=== PATIENT | male | born 1970 | race Caucasian/White ===

== ENCOUNTER → 2018-02-02 | Outpatient (CLI) | payer BC ==
--- NOTE | 2018-02-02 19:45 | ECHOF ---
Referral Reason:R07.89 other chest pain MEASUREMENTS -------- HEIGHT: 182.9 cm WEIGHT: 122.9 kg BP: 130/57 IVSd: 1.4 cm (0.6 - 1.1) LVIDd: 4.1 cm (3.9 - 5.3) LVPWd: 1.3 cm (0.6 - 1.1) IVSs: 2.1 cm LVIDs: 2.9 cm LVPWs: 1.9 cm LAESV Index (A-L): 28.78 ml/m Ao Diam: 3.7 cm (2.0 - 3.7) AV Cusp: 2.2 cm (1.5 - 2.6) LA Diam: 3.5 cm (2.7 - 3.8) MV EXCURSION: 12.148 mm (> 18.000) MV EF SLOPE: 169 mm/s (70 - 150) EPSS: 0.5 cm MV E Grant: 0.64 m/s MV DecT: 422 ms MV A Grant: 0.51 m/s MV E/A Ratio: 1.25 RAP: 5.00 mmHg RVSP: 15.50 mmHg FINDINGS -------- Sinus rhythm. This was a technically good study. The left ventricular size is normal. There is moderate concentric left ventricular hypertrophy. O verall left ventricular systolic function is normal with, an EF between 55 - 60 %. The right ventricle is normal in size and function. The left atrium is normal in size. The right atrium is normal in size. The aortic valve is trileaflet, and appears structurally normal. No aortic stenosis or regurgitation. There is trace mitral regurgitation. Trace tricuspid regurgitation present. The right ventricular systolic pressure, as measured by Dopp ler, is 15.50mmHg. Pulmonic valve appears structurally normal. The aortic root size is normal. Normal inferior vena cava with normal inspiratory collapse consistent with estimated right atrial pre ssure of 5 mmHg. The pericardium is normal. CONCLUSIONS -------- 1. Sinus rhythm. 2. This was a technically good study. 3. The left ventricular size is normal. 4. There is moderate concentric left ventricular hypertrophy. 5. Overall left ventricular systolic function is normal with, an EF between 55 - 60 %. 6. The right ventricle is normal in size and function. 7. The left atrium is normal in size. 8. The right atrium is normal in size. 9. The aortic valve is trileaflet, and appears structurally normal. No aortic stenosis or regurgitati on. 10. There is trace mitral regurgitation. 11. Trace tricuspid regurgitation present. 12. The right ventricular systolic pressure, as measured by Doppler, is 15.50mmHg. 13. Pulmonic valve appears structurally normal. 14. The aortic root size is normal. 15. Normal inferior vena cava with normal inspiratory collapse consistent with estimated right atrial pressure of 5 mmHg. 16. The pericardium is normal. SHOP TAILOR: Alva Banerjee RDCS
--- NOTE | 2018-02-02 22:55 | EST ---
EXERCISE STRESS AGE: 47 SEX: Male HT: 74" WT: 270 lbs PROTOCOL: Ramón STAGE: II DURATION OF EXERCISE: 8:07 HEART RATE REST: 55 BLOOD PRESSURE REST: 122/77 MAXIMUM HEART RATE ACHIEVED: 131 MAXIMUM BLOOD PRESSURE: 191/75 85% MPHR: 145 100% MPHR: 171 METS: 9.7 INDICATIONS: Chest pain. CLINICAL INFORMATION: Baseline EKG revealed sinus bradycardia without any acute changes. Patient walked on a standard Ramón protocol for 8 minutes 7 seconds. He achieved a maximal heart rate of 131 beats per minute, which is less than 85% of predicted maximal. He developed fatigue, shortness of breath and had some coughing bouts and then felt that his legs were tired, and therefore stress test was stopped. Rare PVCs were noted. There were no EKG changes to indicate ischemia. There was some artifact of the baseline noted. FINAL IMPRESSION: 1. Limited exercise capacity. 2. Inconclusive stress test because of inadequate chronotropic response. 3. Patient had coughing bouts, discomfort in his legs and shortness of breath, and therefore stress test was stopped. He did not have any angina. EKG did not reveal any ST-segment changes to indicate ischemia. 4. If ischemia is strongly suspected, patient may benefit from pharmacological stress testing. MMODL / IJN: [id number] /
== END | disposition home or self-care (01) ==
LOC: RADNMMAIN 10:31
PROVIDERS: ATTEND Family Medicine
DX: R94.39 Abnormal result of other cardiovascular function study (principal); R07.89 Other chest pain
CPT/HCPCS: 93017; 93306

== ENCOUNTER → 2018-12-21 | Outpatient (CLI) | payer BC ==
[~2018-12-21] MED LIST: REGADENOSON 0.4 MG/5 ML SYRINGE IV ONE
--- NOTE | 2018-12-21 12:54 | EST ---
EXERCISE STRESS AGE: 48 SEX: M HT: 6'2" WT: 260 PROTOCOL: Lexiscan Cardiolite Stress Test HEART RATE REST: 52 BLOOD PRESSURE REST: 118/72 MAXIMUM HEART RATE ACHIEVED: 81 MAXIMUM BLOOD PRESSURE: 118/72 INDICATIONS: Chest pain. CLINICAL INFORMATION: A Lexiscan injection was performed. Peak heart rate of 81, was achieved. Maximum blood pressure 118/72 mmHg was noted. The resting EKG shows normal sinus rhythm with normal HI interval and QRS duration and normal ST-T waves. No ST-segment depression suggestive of ischemia was noted. Occasional PVCs are noted. FINAL IMPRESSION: There is no evidence of any ST-segment depression to suggest ischemia during Lexiscan injection. Occasional premature ventricular contractions were noted. MMODL / IJN: [id number] /
--- NOTE | 2018-12-21 13:25 | NM ---
EXAMINATION TYPE: NM stress lexiscan cardiolite DATE OF EXAM: 12/21/2018 COMPARISON: NONE HISTORY: Chest pain TECHNIQUE: After the intravenous administration of 10.28 mCi Tc 99m Sestamibi - Cardiolite resting S PECT images acquired 45 minutes post injection. The patient received 0.4mg Lexiscan, 25.3 mCi Tc 99m Sestamibi - Stress images obtained [address] injection FINDINGS: Review of stress and rest SPECT images demonstrates fixed defects involving the inferior wall the oscar cardium. Findings are suspicious for a area of stress-induced reversible ischemia involving the apex myocardium.. Gated analysis shows normal wall motion with an estimated left ventricular ejection fra ction of 57 %. IMPRESSION: 1. Findings are suspicious for stress-induced reversible ischemia involving the apex myocardium. Repo rt called to the referring physician. A [place] level critical message alert has been initiated for Sam Vizcaino DO via the [employer] Critical Results System on 12/21/2018 1:22 PM. This message alert has been sent to Sam cuellar DO via the preferences provided by the clinician for the receipt of Radiology Critical Findings. Message ID [id number].
== END | disposition home or self-care (01) ==
LOC: RADNMMAIN 08:18
PROVIDERS: ATTEND Family Medicine
DX: R07.9 Chest pain, unspecified (principal)
CPT/HCPCS: 93017; 78452; A9500; J2785